=== PATIENT | female | born 1945 | race Caucasian/White ===

== ENCOUNTER 2017-10-18 07:59 | Emergency (ER) | payer BC ==
[~2017-10-18] VITALS: Ht 167.6 cm; Wt 71.5 kg
[~2017-10-18 07:59] MED LIST: ATEN-100 PO; CEPH500C3 PO; CHLO7.5 PO; ESTR1TAB PO; PRED20 PO
[2017-10-18 08:04] VITALS: BP 166/79; PULSE 75; RESP 18; TEMP 97.9; O2SAT 94
[2017-10-18] MEDS ORDERED: CHLO7.5 PO (08:15)
[2017-10-18] MEDS ORDERED: ESTR1TAB PO (08:15)
[2017-10-18] MEDS ORDERED: ATEN25TA PO (08:15)
[2017-10-18] MEDS ORDERED: PRAV20TA2 PO (08:15)
--- NOTE | 2017-10-18 08:36 | PD ---
HPI Chief Complaint: Dizziness Time Seen by Provider: 08:17 Travel History International Travel<30 days: No Contact w/Intl Traveler<30days: No Traveled to known affect area: No History of Present Illness HPI The patient was seen and examined in the presence of the nurse. This patient had an anxiety attack this morning. She had a recent in the family and has been very anxious. Soon as her left this morning she got anxious and panicky. She became lightheaded. She did not have syncope or chest pain or headache. She was not short of breath. It lasted several minutes and then resolved. There is no vertigo sensation. Her daughter brings her in for evaluation at this time. She is visibly anxious but denies any other specific complaint. Duration 1 hour. No alleviating factors. She does have anxiety medicine at home but did not take it PFSH Past Medical History Anxiety: Yes Heart Rhythm Problems: Yes ("TACHYCARDIA") Cardiovascular Problems: Yes (TACHYCARDIA) High Cholesterol: Yes Chemotherapy: Yes Hypertension: Yes Immunizations Current: Yes Past Surgical History Hysterectomy: Yes Social History Alcohol Use: No Tobacco Use: No (QUIT 2014, E-CIG CURRENTLY) Substance Use: No Allergies-Medications (Allergen,Severity, Reaction): Coded Allergies: penicillin G (Unverified Allergy, Severe, SOB, 10/18/17) Sulfa (Sulfonamide Antibiotics) (Unverified Allergy, Mild, UNK RXN- HEREDITARY ALLERGY, 10/18/17) clindamycin (Unverified Allergy, Mild, GI PROBLEMS, 10/18/17) meperidine (Unverified Allergy, Mild, "GO CRAZY", 10/18/17) epinephrine (Verified Allergy, Unknown, 10/18/17) Reported Meds & Prescriptions Reported Meds & Active Scripts Active Reported Pravastatin 20 Mg Tab 20 Mg PO DAILY Tranxene T (Clorazepate Dipotassium) 7.5 Mg Tab 3.75 Mg PO BID PRN Estradiol 1 Mg Tab 1 Mg PO DAILY Atenolol 25 Mg Tab 25 Mg PO BID Review of Systems General / Constitutional: No: Fever HENT: No: Headaches Cardiovascular: No: Chest Pain or Discomfort Respiratory: No: Cough Gastrointestinal: No: Vomiting Physical Exam Narrative RESPIRATORY: Respiratory effort unlabored, no retractions or use of accessory muscles. Breath sounds are clear and symmetric. CARDIOVASCULAR: Regular rate and rhythm without murmur. Extremities showed no edema or varicosities. GASTROINTESTINAL: Abdomen soft, non-tender, nondistended. Positive bowel sounds. No hepato-splenomegaly, or palpable masses. No guarding. Psych: Extremely anxious. However judgment seems solid Data Data Last Documented VS Vital Signs Date Time Temp Pulse Resp B/P (MAP) Pulse Ox O2 Delivery O2 Flow Rate FiO2 10/18/17 08:04 97.9 75 18 166/79 (108) 94 MDM Medical Decision Making Medical Screen Exam Complete: Yes Emergency Medical Condition: Yes Medical Record Reviewed: Yes Differential Diagnosis Anxiety, panic, vertigo, cardiac arrhythmia Narrative Course I have reviewed the patient's electronic medical record. Patient's exam is normal. Other than anxiety she is feeling well now. She had brief lightheadedness that resolved. No neurologic deficit or complaint No cardiac irregularity on exam she looks very anxious. She does not want any testing done. She just wants to go home. She wants to take her anxiety pill which is Tranxene Her daughter is going to stay with her today and drive her home I advised her to return if she worsens or has any chest pain or syncope or any other concerning symptom Diagnosis Primary Impression: Anxiety attack Additional Instructions: The patient was advised to follow up with their physician and return if they worsen. Med/Other Pt SpecificInfo: Other Disposition: 01 DISCHARGE HOME Condition: Stable Víctor Samson MD Oct 18, 2017 08:36
== END 2017-10-18 08:42 | disposition home or self-care (01) ==
LOC: PHED 07:59
DX: F41.1 Generalized anxiety disorder (principal); E78.00 Pure hypercholesterolemia, unspecified; I10 Essential (primary) hypertension; Z87.891 Personal history of nicotine dependence
CPT/HCPCS: 99283